=== PATIENT | female | born 1995 | race Caucasian/White ===

== ENCOUNTER 2018-01-24 19:03 | Emergency (ER) | payer BC ==
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
[2018-01-24 19:27] VITALS: BP 134/84
[2018-01-24] MEDS ORDERED: DIPH,PERTUSS(ACELL),TET VAC/PF 0.5 ML DISP.SYRIN IM ONE (19:28)
== END 2018-01-24 19:35 | disposition home or self-care (01) ==
LOC: ED 19:03
DX: S05.12XA Contusion of eyeball and orbital tissues, left eye, initial encounter (principal); Z23 Encounter for immunization; X58.XXXA Exposure to other specified factors, initial encounter; Y93.89 Activity, other specified; Y92.9 Unspecified place or not applicable
CPT/HCPCS: 90471; 90715; 99282; 99283

== ENCOUNTER 2018-04-30 10:34 | Outpatient (CLI) | payer BC | END 2018-04-30 10:35 | LOC: LAB 10:34 | PROVIDERS: ATTEND Physician Assistant | DX: Z02.0 Encounter for examination for admission to educational institution (principal) | CPT/HCPCS: 36415; 86787 ==